=== PATIENT | female | born 1960 | race Caucasian/White ===

== ENCOUNTER 2018-05-19 08:07 | Day surgery (SDC) | payer OTHER, SELFPAY ==
--- NOTE | 2018-05-19 | PATH_ITS ---
[facility] Accession Number: [id number] . 01 Material submitted: . PART A: CECAL BIOPSY PART B: 10 CM FROM THE CECUM BIOPSY PART C: 20 CM FROM THE CECUM PART D: 30 CM FROM THE CECUM PART E: 40 CM FROM THE CECUM PART F: 50 CM FROM THE CECUM PART CM FROM THE CECUM PART H: 70 CM FROM THE CECUM PART I: 80 CM FROM THE CECUM PART J: 90 CM FROM THE CECUM PART K: POLYP AT 20 CM PART L: RECTAL BX . 02 Diagnosis: A, B, C, D, E, F: Biopsies From Cecum, 10 cm From The Cecum, 20 cm From The Cecum, 30 cm From The Cecum, 40 cm From The Cecum, And 50 cm From The Cecum: Fragments of normal appearing colon mucosa present in all six specimens. Prominent lymphoid aggregates present in two fragments in part A, two fragments in part B, one fragment in part C, and one fragment in part E. Negative for significant architectural distortion. Negative for significant inflammation, dysplasia, and malignancy. . G. Biopsy Colon 60 cm From The Cecum: Two fragments of colon mucosa with changes consistent with chronic inactive colitis. Negative for dysplasia and malignancy. . H, I: Colon Biopsies From 70 cm From The Cecum and 80 cm From The Cecum: Minimal architectural distortion consistent with chronic inactive colitis present in both specimens. Negative for active inflammation. Negative for dysplasia and malignancy. . J. Biopsy Colon 90 cm From The Cecum: Distinct architectural distortion without active inflammation, consistent with chronic inactive colitis. Negative for granulomas. Negative for dysplasia and malignancy. . K. Biopsy Colon Polyp At 20 cm: Prolapsed inflammatory polyp, negative for atypia. . L. Biopsy Rectum: Single fragment of colon mucosa with changes consistent with hyperplastic polyp. Two fragments of colon mucosa that appear essentially normal with no evidence of architectural distortion or significiant inflammation, dysplasia or malignancy. [facility]/05/20/2018 . 02 Electronically signed: . Jaswinder Mari MD, Pathologist NPI- [id number] . 01 Gross description: . Received twelve formalin-filled containers each labeled with the patient's name. . A. In a container labeled cecal are three less than 0.1 to 0.3 cm portions of tissue. Entirely submitted in cassette A. B. In a container labeled 10 cm from the cecum are three less than 0.1 to 0.2 cm portions of tissue. Entirely submitted in cassette B. C. In a container labeled 20 cm from the cecum are three 0.1 to 0.2 cm portions of tissue. Entirely submitted in cassette C. D. In a container labeled 30 cm from the cecum are two 0.1 to 0.2 cm portions of tissue. Entirely submitted in cassette D. E. In a container labeled 40 cm from the cecum are three 0.1 to 0.2 cm portions of tissue. Entirely submitted in cassette E. F. In a container labeled 50 cm from the cecum are two 0.1 to 0.3 cm portions of tissue. Entirely submitted in cassette F. G. In a container labeled 60 cm from the cecum are three 0.2 to 0.5 cm portions of tissue. Entirely submitted in cassette G. H. In a container labeled 70 cm from the cecum, the specimen consists of a 0.5 cm portion of tissue. Entirely submitted in cassette H. I. In a container labeled 80 cm are two less than 0.1 to 0.3 cm portions of tissue. Entirely submitted in cassette I. J. In a container labeled 90 cm are three 0.1 to 0.3 cm portions of tissue. Entirely submitted in cassette J. K. In a container labeled polyp at 20 cm, the specimen consists of a 0.3 cm portion of tissue. Entirely submitted in cassette K. L. In a container labeled rectal are three 0.1 to 0.3 cm portions of tissue. Entirely submitted in cassette L. ([facility]:[id number]) /[facility] . 02 Pathologist provided ICD-10: K52.9, K63.5 . 02 CPT . 694131, 094104, 593913, 846559, 966720, 463977, 070933, 533622, 070857, 633165, 422545, 199713 Performed at: [facility] [address] [id number] MD Yifan Greene MD Phone: [phone] Performed at: [address] [facility] [id number] [place], [place] [id number] MD Terrence Alfredo MD Phone: [phone]
[2018-05-19] MEDS: SODIUM CHLORIDE 0.9% 1,000 ML 70 ML IV (08:15)
[2018-05-19 08:25] VITALS: BMI 28.4
--- NOTE | 2018-05-19 08:30 | PM.HP.1 ---
History of Present Illness Date Patient Seen: 05/19/18 Chief complaint: colonoscopy [id number] Narrative: The patient is a 58-year-old female with a longstanding history of ulcerative colitis who was last seen in our office December 03, [address] Solano. At that time she was on steroids and Lialda to control her ulcerative colitis. Over the past year the patient appears to be in remission with no recurrence of GI bleeding. Meds Home Medications Medication Instructions Recorded Confirmed Type [ CONTROL PILLS] #0 06/29/08 History benzonatate 100 mg PO Q8HP PRN #20 cap 10/17/17 Rx Allergies Allergy/AdvReac Type Severity Reaction Status Date / Time No Known Allergies Allergy Uncoded 01/27/18 11:47 Review of Systems Review of Systems All systems reviewed & are unremarkable except as noted in HPI and below Exam Narrative Exam Narrative: General: Patient is well developed, not in apparent distress Cardiovascular: Regular rate and rhythm, no murmurs, rubs, or gallops; no evidence of edema; no palpable abdominal aortic aneurysm Gastrointestinal: Normoactive bowel sounds, soft, nontender, nondistended, no rebound tenderness, no hepatosplenomegaly, no evidence of hernia Assessment & Plan Plan: Assessment/Plan Narrative: 58-year-old female with history of ulcerative colitis here for surveillance colonoscopy for dysplasia. The patient is currently in stable condition with no evidence of active ulcerative colitis Regarding the procedure(s), the risks and potential complications, benefits, and alternatives (including not doing the procedure) were discussed with the patient. The risks include but are not limited to bleeding, infection, perforation which may require surgical intervention, missed lesions, and adverse reactions to sedative medicines. After a question and answer period, the patient agreed to proceed with the procedure(s).
--- NOTE | 2018-05-19 09:31 | PM.OP.ENDO ---
Operative Date/Time/Diagnoses Date of procedure: 05/19/18 Procedure Notes Procedure in detail: Surgeon: Jonathan Alves MD Procedure: Colonoscopy with biopsy, snare polypectomy, submucosal injection Preoperative diagnosis: Longstanding ulcerative colitis here for dysplasia surveillance Postoperative diagnosis: Pseudopolyps in left colon, sigmoid diverticulosis, sigmoid polyp status post polypectomy and tattoo, grade 1 internal hemorrhoids Medications: Conscious sedation using 5 mg IV of Midazolam and 100 mcg IV of Fentanyl Preanesthesia Assessment An H and P was performed/updated and the Px?s ASA class is 2. The procedure was discussed in detail with the patient. The potential risks and complications including infection, bleeding, missed lesions, perforation, need for surgery in case of perforation, prolonged hospital stay, and were explained. A brief question and answer period was allotted and once all questions were answered, informed consent was obtained. The patient was brought back to the procedure room and placed on standard monitoring. The patient?s vital signs were monitored continuously throughout the entire procedure. Prior to starting, a timeout was performed to confirm the patient?s identity, allergies, medications, and procedure. Procedure in detail The patient was placed in left lateral decubitus position and once adequate sedation was obtained a WILMAN was performed. The digital rectal examination did not reveal any abnormalities. The tip of the colonoscope was placed in the anal canal and advanced without difficulty all the way to the cecum which was identified by the appendiceal orifice and the ileocecal valve. The terminal ileum was intubated to a distance of 5 cm and the mucosa appeared normal. The colonoscope was brought back to the cecum and careful examination of all ng of the colon was performed with irrigation of any residual stool. Surveillance biopsies were taken throughout the entire colon in 10 cm intervals starting in the cecum all the way to the rectum. There was note of multiple pseudopolyps in the descending and sigmoid colon. The mucosa throughout the entire colon otherwise appeared without any active inflammation but there was evidence of scarring. In the sigmoid colon at approximately 20 cm there was note of a sessile polyp which was removed in its entirety by means of a hot snare. This area was tattooed with 2 mm of spot ink. In the sigmoid colon there was note of multiple medium sized diverticula. Retroflexion was performed in the rectum which revealed grade 1 internal hemorrhoids. The procedure was then terminated The patient tolerated the procedure well and will be brought back to the recovery area to be discharged once criteria are met. The prep was judged to be good/excellent and adequate to identify polyps less than 5 mm. The withdrawal time was 19 min. The total procedure time from initial sedation was 28 min. Complications There were no complications and estimated blood loss was minimal. Recommendations: Resume previous diet Continue outPx medications including mesalamine (Lialda) Follow up pathology results Repeat colonoscopy in 2 years. This may change depending on pathology results Office follow up with the [facility] [place] [place] [facility] in 6 months An emergency contact number was given to the patient for any complications related to the procedure
[2018-05-19] MEDS: MIDAZOLAM 5 MG/5 ML VIAL IV (10:02)
[2018-05-19] MEDS: fentaNYL 250 MCG/5 ML INJ IV (10:02)
[2018-05-19 10:04] VITALS: BP 164/101; PULSE 81; RESP 11; TEMP 36.2; O2SAT 91
--- NOTE | 2018-05-19 10:04 | PM.DS.1 ---
History of Present Illness Chief complaint: colonoscopy [id number] Narrative: The patient is a 58-year-old female with a longstanding history of ulcerative colitis who was last seen in our office December 03, [address] Solano. At that time she was on steroids and Lialda to control her ulcerative colitis. Over the past year the patient appears to be in remission with no recurrence of GI bleeding. Discharge Providers Discharge provider: Jonathan Alves MD Exam Narrative Exam Narrative: General: Patient is well developed, not in apparent distress Cardiovascular: Regular rate and rhythm, no murmurs, rubs, or gallops; no evidence of edema; no palpable abdominal aortic aneurysm Gastrointestinal: Normoactive bowel sounds, soft, nontender, nondistended, no rebound tenderness, no hepatosplenomegaly, no evidence of hernia Discharge Plan Discharge Plan Patient Disposition: Home, Self-Care Discharge Med Rec/Prescriptions Prescriptions: Continue [ CONTROL PILLS] Qty: 0 RF: 0 benzonatate 100 MG capsule 100 mg PO Q8HP PRNQty: 20 RF: 0 Discharge Orders: Discharge (Order); Ordered 05/19/18 Ordered By: Jonathan Alves Provider Discharge Instructions Diet: Diet as Tolerated Visit Report/Discharge Packet Stand Alone Forms: Surgery Discharge Discharge Data Attending Provider: Jonathan Alves
[2018-05-19 10:08] VITALS: BP 153/99; PULSE 82; RESP 10; O2SAT 95
[2018-05-19 10:13] VITALS: BP 153/92; PULSE 78; RESP 11; O2SAT 92
[2018-05-19 10:18] VITALS: BP 161/99; PULSE 85; RESP 13; TEMP 36.2; O2SAT 96
[2018-05-19 10:31] VITALS: BP 176/104; PULSE 80; RESP 14; TEMP 36; O2SAT 96
== END 2018-05-19 10:36 | disposition home or self-care (01) ==
PROVIDERS: Visit Provider Internal Medicine Gastroenterology
PROC: 0DJD8ZZ Inspection of Lower Intestinal Tract, Via Natural or Artificial Opening Endoscopic (ICD-10-PCS; CPT 45378; principal; 2018-05-19 09:15)
DX: K52.9 Noninfective gastroenteritis and colitis, unspecified (principal); K57.30 Diverticulosis of large intestine without perforation or abscess without bleeding; D12.5 Benign neoplasm of sigmoid colon; D12.4 Benign neoplasm of descending colon; K64.0 First degree hemorrhoids; K63.5 Polyp of colon
CPT/HCPCS: 45385; 45380; 45381; J2250; J3010

== ENCOUNTER → 2018-08-16 13:35 | Outpatient (CLI) | payer OTHER, SELFPAY ==
--- NOTE | 2018-08-16 | DI.RAD.S_ITS ---
PROCEDURE: XR HAND LT 2V INDICATIONS: HAND PAIN, RT FOOT PAIN TECHNIQUE: 2 views of the hand(s) acquired. COMPARISON: [facility], CR, XR HAND RT 2V, 08/16/2018, 13:42. FINDINGS: Bones: No fractures or dislocations. Carpal bones are normally aligned. No suspicious bony lesions. Soft tissues: No suspicious soft tissue calcifications. IMPRESSION: Normal except for slight degenerative osteoarthritic joint space narrowing at the distal interphalangeal joints. No erosive arthritis is suspected. Dictated by: Gokul Meyers M.D. on 08/16/2018 at 15:42 Approved by: Gokul Meyers M.D. on 08/16/2018 at 15:43
--- NOTE | 2018-08-16 | DI.RAD.S_ITS ---
PROCEDURE: XR HAND RT 2V INDICATIONS: HAND PAIN, RT FOOT PAIN TECHNIQUE: 2 views of the hand(s) acquired. COMPARISON: None. FINDINGS: Bones: Normal for age, no trauma found. Soft tissues: No suspicious soft tissue calcifications. IMPRESSION: Normal. Except for slight degenerative osteophytic change at the interphalangeal joints expected for age. Dictated by: Gokul Meyers M.D. on 08/16/2018 at 15:42 Approved by: Gokul Meyers M.D. on 08/16/2018 at 15:42
--- NOTE | 2018-08-16 | DI.RAD.S_ITS ---
PROCEDURE: XR FOOT RT 2V INDICATIONS: HAND PAIN, RT FOOT PAIN TECHNIQUE: 2 views of the foot were acquired. COMPARISON: None. FINDINGS: Bones: No fractures or dislocations, but there is moderately severe to severe degenerative first MTP joint osteoarthritis, with mild subluxation of the base of the first metatarsal medially, and what may be an old traumatic evulsion fragment at the lateral aspect of the base of the first proximal phalanx. Note on the lateral view is made of a small to moderate-sized plantar fascial insertion spur.. No suspicious bony lesions. Soft tissues: No tibiotalar joint effusion. Achilles tendon appears normal. 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 Incidental note made of a small to moderate plantar fascia insertion spur which can be associated with plantar fasciitis. Please correlate clinically. Dictated by: Gokul Meyers M.D. on 08/16/2018 at 15:43 Approved by: Gokul Meyers M.D. on 08/16/2018 at 15:44
== END ==
PROVIDERS: Visit Provider Internal Medicine Rheumatology
DX: M79.671 Pain in right foot (principal); M19.071 Primary osteoarthritis, right ankle and foot; M79.641 Pain in right hand; M79.642 Pain in left hand
CPT/HCPCS: 73120; 73620

== ENCOUNTER → 2020-08-20 10:44 | Outpatient (CLI) | payer OTHER, SELFPAY ==
--- NOTE | 2020-08-20 10:57 | DI.RAD.S_ITS ---
PROCEDURE: XR CHEST 2V INDICATIONS: SOB w/ exertion, orthopnea, cough x3 weeks TECHNIQUE: 2 views of the chest were acquired. COMPARISON: [facility], , CHEST 2 VIEW, 10/17/2017, 21:07. FINDINGS: Surgical changes and devices: None. Lungs and pleura: Lungs are clear. No pleural effusions or pneumothorax. Mediastinum: Mediastinal contours are normal. Heart size is normal. Bones and chest wall: No suspicious bony abnormalities. Soft tissues appear unremarkable. IMPRESSION: No evidence acute pulmonary process. Dictated by: David Chavis M.D. on 08/20/2020 at 12:35 Approved by: David Chavis M.D. on 08/20/2020 at 12:35
[2020-08-20 13:10] LABS: Add Manual Diff / Slide Review NO; Basophils Absolute Auto 100 /uL (0-100); Basophils Percent Auto 1.8 % (0-2); Eosinophils Absolute Auto 200 /uL (0-450); Eosinophils Percent Auto 3.8 % (2-4); Hemoglobin 9.7 g/dL (12.0-16.0); Lymphocytes Absolute Auto 1600 /uL (1100-4500); Lymphocytes Percent Auto 25.9 % (25-40); Mean Corpuscular HGB Conc 32.2 % (30-36); Mean Corpuscular Hemoglobin 26.1 PG (26-34); Mean Corpuscular Volume 81.2 fL (80-100); Monocytes Absolute Auto 800 /uL (0-900); Monocytes Percent Auto 12.1 % (3-14); Neutrophils Absolute Auto 3600 /uL (1500-7000); Neutrophils Percent Auto 56.4 % (50-75); Platelet Count 542 X10^3/uL (150-400); Red Cell Distribution Width 15.7 % (11.6-14.8); White Blood Cell Count 6.3 X10^3/uL (4.5-11.0)
[2020-08-20 13:28] LABS: Alanine Aminotransferase 24 IU/L (<35); Albumin Globulin Ratio 1.1 (1.0-2.8); Alkaline Phosphatase 128 U/L (38-126); Aspartate Aminotransferase 24 IU/L (14-36); Bilirubin Total 0.4 mg/dL (0.2-1.3); Blood Urea Nitrogen 9 mg/dL (7-17); Calcium 9.7 mg/dL (8.4-10.2); Carbon Dioxide 30 mmol/L (22-32); Chloride 103 mmol/L (98-107); Creatine Kinase 26 U/L (30-135); Estimated Glomerular Filt Rate > 60.0 mL/min (>60); Globulin 3.6 g/dL (1.7-4.1); Glucose 101 mg/dL (80-110); HEMOLYSIS < 15 (0-50); Potassium 4.4 mmol/L (3.4-5.1); Sodium 137 mmol/L (137-145); Total Protein 7.6 g/dL (6.3-8.2)
[2020-08-20 13:39] LABS: NT-proBNP (BNP-Adult 18+) 166 pg/mL (<125); Troponin I < 0.012 ng/mL (0.01-0.034)
[2020-08-20 13:42] LABS: Procalcitonin < 0.05 ng/mL (<0.5)
== END ==
PROVIDERS: Referring Provider Physician Assistant; Visit Provider Physician Assistant
DX: R05 Cough (principal)
CPT/HCPCS: 36415; 71046; 80053; 82550; 83880; 84145; 84484; 85025

== ENCOUNTER 2021-11-15 08:04 | Emergency (ER) | payer OTHER, SELFPAY ==
--- NOTE | 2021-11-15 08:34 | DI.RAD.S_ITS ---
PROCEDURE: XR WRIST LT MIN 3V INDICATIONS: fall TECHNIQUE: 4 views of the wrist were acquired. COMPARISON: None. FINDINGS: Bones: Very subtle mildly comminuted crack fracture of the distal radius extending to the articular surface. No other fractures or dislocations. No suspicious bony lesions. Scaphoid view: Scaphoid intact. Soft tissues: No suspicious soft tissue calcifications. IMPRESSION: Distal radius fracture extending to the articular surface. Dictated by: David Chavis M.D. on 11/15/2021 at 8:49 Approved by: David Chavis M.D. on 11/15/2021 at 8:50
[2021-11-15 08:52] VITALS: BP 171/90; PULSE 90; RESP 18; TEMP 35.9; O2SAT 97; BMI 30.2
--- NOTE | 2021-11-15 09:03 | ED.UPPEXIN ---
HPI - Extremity Injury (Upper) General Chief Complaint: Extremity Injury, Upper Stated Complaint: poss broken left arm Time Seen by Provider: 11/15/21 08:57 Source: family Mode of arrival: Family Vehicle History of Present Illness HPI narrative: The patient slipped at home last night, falling backward. She smacked her left wrist against a door frame. She presents now with significant pain to the left wrist, no deformity. There is slight edema to the dorsal wrist. She has no numbness or weakness in the left hand. She has no head, neck or torso injury. Extremities are otherwise atraumatic. She is right-hand dominant. Related Data Home Medications Medication Instructions Recorded Confirmed mesalamine 1.2 gram tablet,delayed g PO 08/20/20 08/20/20 release Previous Rx's Medication Instructions Recorded albuterol sulfate 90 mcg/actuation 2 puff INHALATION Q4-6H PRN #8.5 08/20/20 aerosol inhaler gram hydrocodone 5 mg-acetaminophen 325 1 tab PO Q4-6H PRN #14 tab 11/15/21 mg tablet Allergies Allergy/AdvReac Type Severity Reaction Status Date / Time No Known Drug Allergies Allergy Verified 11/15/21 08:52 Review of Systems Constitutional Constitutional: Denies body ache(s), Denies chills, Denies fever(s) and Denies weakness Comments: No recent illness. ENT Ears, Nose, Mouth, and Throat: Denies vertigo and Denies dizziness Comments: No head or neck injury. Cardiovascular Cardiovascular: Denies dyspnea Respiratory Respiratory: Denies dyspnea Musculoskeletal Musculoskeletal: Denies numbness Comments: See HPI regarding left wrist injury. Integumentary/Breasts Skin/Breast: Denies lesions and Denies rash Neurologic Neurologic: Denies vertigo, Denies dizziness, Denies numbness and Denies weakness Hematologic/Lymphatic On Anticoagulants: No Patient History Medical History Cough Social History household members: significant other Smoking Status: Former smoker Smoking Status: Former smoker tobacco type: cigarettes alcohol intake frequency: 0-2 drinks per day Substance Use Type: does not use Exam Initial Vital Signs Initial Vital Signs: Vital Signs Temperature 96.7 F L 11/15/21 08:52 Pulse Rate 90 11/15/21 08:52 Respiratory Rate 18 11/15/21 08:52 Blood Pressure 171/90 H 11/15/21 08:52 Pulse Oximetry 97 11/15/21 08:52 Const General: cooperative, healthy appearing and comfortable [facility] Head: normocephalic and atraumatic Back/Spine/Pelvis Back: normal to inspection and No back tenderness Skin General: no rashes or lesions noted Neuro General: patient alert, patient awake, patient oriented x3 and no focal motor deficits Other: Left hand motor and sensory exam is normal. Extrem Other: Left upper arm, left shoulder and elbow are atraumatic. She has full range of motion throughout the shoulder, elbow and wrist. There is slight edema over the volar/radial wrist. There is no significant deformity. There is no snuffbox tenderness. She has pain over the volar wrist with palpation and motion. The hand is otherwise atraumatic. She has normal range of motion in all digits without discomfort capillary refill is normal to her left fingers. Procedures Orthopedic Splinting/Casting Injury #1: Side: left Upper Extremity Injury Location: wrist Upper Extremity Immobilizer: volar splint (Left short arm splint formed from Ortho Glass.) Post splinting neuro exam: intact Post splinting vascular exam: intact Placed by: Nursing Course Orders Ordered: Discontinued Medications Hydrocodone Bitart/Acetaminophen (Hydrocodone/Acet 5/325 Tablet) 1 tab PO NOW ONE Stop: 11/15/21 09:03 Last Admin: 11/15/21 09:17 Dose: 1 tab Documented by: TANISHA Vital Signs Vital signs: Vital Signs - 8 hr 11/15/21 08:52 Temperature 96.7 F L Pulse Rate 90 Respiratory Rate 18 Blood Pressure 171/90 H Pulse Oximetry 97 MDM - Extremity Injury (Upper) Imaging Data Left wrist x-ray: Radiologist's Impression: Launch?[address] [address] XRay Report Signed Patient: Sarah Damon MR#: [id number] : 1960 Acct:[id number] Age/Sex: 61 / F Date of Service: 11/15/21 Loc: ED Accession Number: [id number] ?? Procedure: XR wrist LT min 3V Ordering Provider: Thomas Taylor MD PROCEDURE:? XR WRIST LT MIN 3V ? INDICATIONS: fall ? TECHNIQUE:? 4 views of the wrist were acquired.? ? COMPARISON:? None. ? FINDINGS:? ? Bones:? Very subtle mildly comminuted crack fracture of the distal radius extending to the articular surface.? No other fractures or dislocations.? No suspicious bony lesions.? ? ? Scaphoid view:? Scaphoid intact. ? Soft tissues:? No suspicious soft tissue calcifications.? ? IMPRESSION:? Distal radius fracture extending to the articular surface. ? ? Dictated by: David Chavis M.D. on 11/15/2021 at 8:49 ? ? Approved by: David Chavis M.D. on 11/15/2021 at 8:50?? Discharge Plan Departure Patient Disposition: Home Clinical Impression: Closed fracture of distal end of left radius Instructions: DI for Wrist Fracture Activity Restrictions/Additional Instructions: Keep the splint in place until you are seen in follow-up. Tylenol or Advil as needed for pain. [place] every 4-6 hours as needed for added pain control. I have given you contact information to arrange follow-up with Dr. Jones, orthopedic surgery. Return to the ER as necessary. Prescriptions: New hydrocodone-acetaminophen 5-325 mg tablet 1 tab PO Q4-6H PRN (Reason: pain) Qty: 14 0RF No Action mesalamine 1.2 gram tablet,delayed release (DR/EC) PO 0RF albuterol sulfate 90 mcg/actuation HFA aerosol inhaler 2 puff INHALATION Q4-6H PRN (Reason: bronchospasm) Qty: 8.5 0RF Referrals: Mic Jones MD [Physician] -
[2021-11-15] MEDS: HYDROCODONE/ACET 5/325 TABLET 1 TAB PO (09:17)
[2021-11-15 09:35] VITALS: BP 160/70; PULSE 72; RESP 16; O2SAT 99
== END 2021-11-15 09:36 | disposition home or self-care (01) ==
PROVIDERS: Emergency Provider Emergency Medicine
DX: S52.502A Unspecified fracture of the lower end of left radius, initial encounter for closed fracture (principal); Z87.891 Personal history of nicotine dependence; W01.0XXA Fall on same level from slipping, tripping and stumbling without subsequent striking against object, initial encounter; Y92.009 Unspecified place in unspecified non-institutional (private) residence as the place of occurrence of the external cause
CPT/HCPCS: 29125; 73090; 73110; 99283

== ENCOUNTER → 2022-09-24 14:50 | Outpatient (CLI) | payer OTHER, SELFPAY ==
--- NOTE | 2022-09-24 | DI.MG.S_ITS ---
BILATERAL DIGITAL SCREENING MAMMOGRAM 3D/2D WITH CAD: 09/24/2022 CLINICAL: Baseline by default. No prior exams were available for comparison. There are scattered areas of fibroglandular density in both breasts (category b / 25%-50% glandular tissue). Current study was also evaluated with a Computer Aided Detection (CAD) system. No significant masses, calcifications, or other findings are seen in either breast. IMPRESSION: NEGATIVE There is no mammographic evidence of malignancy. A 1 year screening mammogram is recommended. Based on the Tyrer Cuzick model (a risk assessment model) the patient's lifetime risk is 5.7% and her 10 year risk is 2.5%. According to the ACR, ACS, and NCCN guidelines, an annual breast MRI exam along with mammogram is recommended if the patient's lifetime risk is 20% or greater. This exam was interpreted at Station ID: [id number]. NOTE: For mammograms, a report in lay terms will be sent to the patient. Approximately 15% of breast malignancies will not be visualized mammographically. In the management of a palpable breast mass, a negative mammogram must not discourage biopsy of a clinically suspicious lesion. Electronically Signed By: Marin chi/jerri:09/24/2022 16:25:55 letter sent: Normal Exam ACR BI-RADS Category 1: Negative [id number]
== END ==
PROVIDERS: Referring Provider Internal Medicine Gastroenterology; Visit Provider Internal Medicine Gastroenterology
DX: Z12.31 Encounter for screening mammogram for malignant neoplasm of breast (principal)
CPT/HCPCS: 77063; 77067

== ENCOUNTER 2023-08-31 08:58 | Day surgery (SDC) | payer OTHER, SELFPAY ==
--- NOTE | 2023-08-31 | PATH_ITS ---
[facility] Accession Number: [id number] No. of containers..06 Tissue . 01 Material submitted: . PART A: colon - ASCENDING COLON PART B: colon - TRANSVERSE COLON PART C: colon - DESCENDING COLON PART D: sigmoid colon - SIGMOID COLON PART E: rectum - RECTUM COLON PART F: rectum - RECTAL POLYP . 01 Diagnosis: A. Ascending Colon, Biopsy: Focal moderate active colitis. Negative for granulomas, dysplasia or malignancy. . B. Transverse Colon, Biopsy: Chronic colitis with mild to moderate activity; please see comment. Negative for granulomas, dysplasia or malignancy. . C. Descending Colon, Biopsy: Chronic colitis with moderate to focally severe activity. Negative for granulomas, dysplasia or malignancy. . D. Sigmoid Colon, Biopsy: Chronic colitis with moderate activity. Negative for granulomas, dysplasia or malignancy. . E. Rectum, Biopsy: Chronic colitis with severe activity; please see comment. Negative for granulomas, dysplasia or malignancy. . F. Rectal Polyp: Features indeterminate for hyperplastic polyp versus inflammatory polyp. Negative for dysplasia or malignancy. MRV 09/08/2023 1636 Local . 01 Comment: The overall histologic findings are consistent with the clinical history of ulcerative colitis. . 01 Electronically signed: . Aleksandar Restrepo MD, PhD, Pathologist NPI- [id number] . 01 Gross description: . Part A: ASCENDING COLON: Received in formalin are 2 fragment(s) of salmeron, soft tissue measuring 0.1 x 0.1 x 0.1 cm to 0.2 x 0.2 x 0.2 cm submitted entirely in 1 cassette(s) Part B: TRANSVERSE COLON : Received in formalin are 3 fragment(s) of salmeron, soft tissue measuring 0.1 x 0.1 x 0.1 cm to 0.3 x 0.2 x 0.2 cm submitted entirely in 1 cassette(s) Part C: DESCENDING COLON: Received in formalin are 3 fragment(s) of salmeron, soft tissue measuring 0.1 x 0.1 x 0.1 cm to 0.2 x 0.2 x 0.2 cm submitted entirely in 1 cassette(s) Part D: SIGMOID COLON: Received in formalin are 3 fragment(s) of salmeron, soft tissue measuring 0.1 x 0.1 x 0.1 cm to 0.3 x 0.3 x 0.2 cm submitted entirely in 1 cassette(s) Part E: RECTUM COLON: Received in formalin are 3 fragment(s) of salmeron, soft tissue measuring 0.1 x 0.1 x 0.1 cm to 0.2 x 0.2 x 0.2 cm submitted entirely in 1 cassette(s) Part F: RECTAL POLYP: Received in formalin is 1 fragment(s) of salmeron, soft tissue measuring 0.1 x 0.1 x 0.1 cm submitted entirely in 1 cassette(s) /MYNOR 09/01/2023 1846 Local . 01 Pathologist provided ICD-10: R19.7, K51.811, K51.40 . 01 CPT . 187795, 094375, 975088, 460675, 829604, 644425 Specimen Comment: A courtesy copy of this report has been sent to [phone] Performed at: 01 [facility] [address] [place] [address] [id number] MD Yifan Greene MD Phone: [phone]
[2023-08-31 09:08] VITALS: BP 164/105; PULSE 94; RESP 16; TEMP 37.2; O2SAT 98; BMI 29.9
[2023-08-31] MEDS: LACTATED RINGERS 1,000 ML 150 ML IV (09:29)
--- NOTE | 2023-08-31 09:47 | PM.HP.1 ---
History of Present Illness History of Present Illness Date Patient Seen: 08/31/23 Time Patient Seen: 09:48 Chief complaint: SDC Narrative: I reviewed the recent office note by Shaw Szymanski. No significant changes. Patient states that she struggles with constipation and diarrhea and rectal bleeding. She can not think of any triggering events that subtle of this often Maria Eugenia. [facility] Medical History Viral URI with cough Cough Social History household members: spouse Smoking Status: Current some day smoker alcohol intake: current Meds Home Medications and Allergies Home Medications Medication Instructions Recorded Confirmed Type No Known Home Medications 08/31/23 08/31/23 History Allergies Allergy/AdvReac Type Severity Reaction Status Date / Time No Known Drug Allergies Allergy Verified 09/13/22 15:48 Review of Systems Review of Systems ROS: Yes All systems reviewed with the patient and are negative except as otherwise documented Exam Vital Signs (past 8 hours): - 08/31/23 09:08 Temperature 98.9 F Pulse Rate 94 H Respiratory Rate 16 Blood Pressure 164/105 H Pulse Oximetry 98 Oxygen Delivery Method Room Air Oxygen Delivery Method Room Air Const General: cooperative HENMT Head: normal to inspection Eyes General: appearance normal, both eyes and all related structures Neck Neck: normal visual inspection Chest Chest: normal inspection of the chest Resp Effort & Inspection: normal respiratory effort Cardio Rate: regular rate GI Inspection: normal to inspection Skin General: no rashes or lesions noted Neuro General: patient alert and patient awake Extrem General: normal to inspection and no pedal edema Psych Appearance: grossly normal Assessment & Plan Assessment & Plan narrative: 63-year-old female with a history of ulcerative colitis. She is currently flaring for the last couple of months. Diagnostic updated colonoscopy is pursued today.
--- NOTE | 2023-08-31 09:49 | PM.PREOP ---
Pre-operative Note Interval Note History & Physical reviewed/Exam performed by Physician: Yes Changes to H&P: No ASA Class (for procedural sedation): II
[2023-08-31 11:08] VITALS: BP 117/68; PULSE 98; RESP 15; TEMP 36; O2SAT 90
--- NOTE | 2023-08-31 11:08 | PM.OP.COLON ---
Operative Date/Time/Diagnoses Date of procedure: 08/31/23 Time of procedure: 11:08 Pre-op diagnosis: Ulcerative colitis Post-op diagnosis: same Procedure & Clinicians Study performed: Colonoscopy with biopsies Same procedure as scheduled: Yes Indications: Ulcerative colitis Surgeon: Jaswinder Orozco Procedure Notes SCOAP/Timeout: Done Procedure in detail: After the risks and benefits were explained, written and verbal informed consent was obtained. The patient was brought into the procedure room and placed into the left lateral decubitus position. Please see anesthesia notes for sedation details. Digital rectal examination was accomplished. The scope was introduced into the patient and advanced under direct visualization to the cecum as identified by the appendiceal orifice and ileocecal valve. The scope was slowly withdrawn to carefully examine the mucosa for any defects or lesions. Comprehensive imaging was accomplished throughout the rectum including the dentate line. The colon was decompressed, the scope was then removed from the patient who tolerated the procedure well. Pediatric colonoscope Bowel prep adequate Scope withdrawal time: 22 minutes Sedation minutes: 35 Complications: none Impression: There was scattered diverticulosis in the sigmoid and ascending colon. Moderate inflammation was identified from the dentate line all the way through the sigmoid up to about 40 cm from the anal verge. This was characterized by mucosal friability, loss of vascular pattern, shallow ulcerations and overlying exudate, and numerous pseudopolyps through this location. (pseudopolyps were in the sigmoid and distal descending. I took segmental biopsies from the ascending, transverse, descending, sigmoid, and finally rectum for histopathologic analysis. The mucosa throughout the transverse and ascending was relatively unremarkable with the exception of a small focus of inflammation right around the splenic flexure which was included in the biopsy set from that location. The terminal ileum was interrogated and appeared visually normal. In the rectum approaching the dentate line was a subtle polypoid appearing structure and this was addressed with biopsy forceps for histopathologic assessment. All of the surrounding mucosa was moderately inflamed. Endoscopic diagnosis 1. Moderate active left-sided ulcerative colitis 2. Numerous pseudopolyps 3. Diverticulosis Post-procedure Plan for aftercare: 1. Await histopathology. 2. Re-initiation of mesalamine is recommended today. 3. The timing of surveillance colonoscopy will be contingent on pathology results but at the latest 1 year. Disposition: PACU
[2023-08-31 11:13] VITALS: BP 118/78; PULSE 100; RESP 17; O2SAT 96
[2023-08-31 11:18] VITALS: BP 149/88; PULSE 93; RESP 13; O2SAT 98
[2023-08-31 11:24] VITALS: BP 157/99; PULSE 88; RESP 13; TEMP 36.6; O2SAT 100
== END 2023-08-31 11:44 | disposition home or self-care (01) ==
PROVIDERS: Referring Provider Internal Medicine Gastroenterology; Visit Provider Internal Medicine Gastroenterology
PROC: 0DJD8ZZ Inspection of Lower Intestinal Tract, Via Natural or Artificial Opening Endoscopic (ICD-10-PCS; CPT 45378; principal; 2023-08-31 10:30)
DX: K51.90 Ulcerative colitis, unspecified, without complications (principal); K57.30 Diverticulosis of large intestine without perforation or abscess without bleeding; K63.5 Polyp of colon
CPT/HCPCS: 45380; J2704

== ENCOUNTER → 2023-10-26 14:30 | Outpatient (CLI) | payer OTHER, SELFPAY ==
--- NOTE | 2023-10-26 14:32 | DI.MG.S_ITS ---
BILATERAL DIGITAL SCREENING MAMMOGRAM 3D/2D WITH CAD: 10/26/2023 CLINICAL: Routine screening. Family history of breast cancer. Comparison is made to exam dated: 09/24/2022 mammogram - [facility]. There are scattered areas of fibroglandular density in both breasts (category b / 25%-50% glandular tissue). Current study was also evaluated with a Computer Aided Detection (CAD) system. No significant masses, calcifications, or other findings are seen in either breast. There has been no significant interval change. IMPRESSION: NEGATIVE There is no mammographic evidence of malignancy. A 1 year screening mammogram is recommended. Based on the Tyrer Cuzick model (a risk assessment model) the patient's lifetime risk is 5.5% and her 10 year risk is 2.5%. According to the ACR, ACS, and NCCN guidelines, an annual breast MRI exam along with mammogram is recommended if the patient's lifetime risk is 20% or greater. This exam was interpreted at Station ID: [id number]. NOTE: For mammograms, a report in lay terms will be sent to the patient. Approximately 15% of breast malignancies will not be visualized mammographically. In the management of a palpable breast mass, a negative mammogram must not discourage biopsy of a clinically suspicious lesion. Electronically Signed By: Neris maier/jerri:10/26/2023 16:23:49 letter sent: Normal Exam ACR BI-RADS Category 1: Negative [id number]
== END ==
PROVIDERS: PCP Nurse Practitioner Family; Referring Provider Nurse Practitioner Family; Visit Provider Nurse Practitioner Family
DX: Z12.31 Encounter for screening mammogram for malignant neoplasm of breast (principal); Z80.3 Family history of malignant neoplasm of breast; R92.323 Mammographic fibroglandular density, bilateral breasts
CPT/HCPCS: 77063; 77067